=== PATIENT | male | born 1985 | race Caucasian/White ===

== ENCOUNTER 2024-11-13 08:19 | Emergency (ER) | payer BC ==
[~2024-11-13] VITALS: Ht 182.9 cm; Wt 154.2 kg
[~2024-11-13 08:19] MED LIST: CYCLOBENZAPRINE10 MG PO
[2024-11-13] MEDS: TRAMADOL HCL 50 MG TAB PO ONE (09:15)
[2024-11-13] MEDS: KETOROLAC TROMETHAMINE 30 MG/ML VIAL IM STA (09:15)
[2024-11-13] MEDS: ACETAMINOPHEN 325 MG TAB PO ONE (09:16)
[2024-11-13] MEDS: DEXAMETHASONE 4 MG TAB PO STA (09:16)
[2024-11-13] MEDS ORDERED: GABAPENTIN300 MG PO (10:19)
[2024-11-13] MEDS: GABAPENTIN 300 MG CAP PO STA (10:48)
[2024-11-13 10:52] VITALS: PULSE 62; RESP 16; TEMP 98; O2SAT 98
== END 2024-11-13 10:55 | disposition home or self-care (01) ==
LOC: ER 08:21
DX: M54.42 Lumbago with sciatica, left side (principal); I10 Essential (primary) hypertension; E11.9 Type 2 diabetes mellitus without complications; F41.9 Anxiety disorder, unspecified; G89.29 Other chronic pain
CPT/HCPCS: 99283; J1885; J8540